=== PATIENT | male | born 1965 | race Caucasian/White ===

== ENCOUNTER 2016-12-21 19:03 | Emergency (ER) | payer MEDICARE ==
[~2016-12-21 19:03] MED LIST: COREG 3.125M3.125 MG PO
[2016-12-21 21:04] LABS: HEMOGLOBIN 9.2 gm/dl (14.0-17.5)
[2016-12-24] MEDS ORDERED: METHADONE HCL T10 MG PO (03:13)
[2016-12-24] MEDS ORDERED: LISINOPRIL-HCT1 EAC1 PO (03:14)
[2016-12-24] MEDS ORDERED: GLUCOPHAGE 500500 MG PO (03:15)
== END 2016-12-22 01:30 | disposition home or self-care (01) ==
LOC: ER1 19:03
PROVIDERS: Physician Assistant
DX: N17.9 Acute kidney failure, unspecified (principal); M86.8X7 Other osteomyelitis, ankle and foot; E11.628 Type 2 diabetes mellitus with other skin complications; L03.115 Cellulitis of right lower limb; I10 Essential (primary) hypertension; Z87.442 Personal history of urinary calculi
CPT/HCPCS: 36415; 71020; 73700; 80053; 81001; 82550; 82553; 83036; 83874; 84484; 85025; 86140; 87070; 87077; 87086; 87186; 87205; 93005; 96374; 96375; 99284; J2543; J3370; J7050